=== PATIENT | male | born 1990 | race Caucasian/White ===

== ENCOUNTER 2017-03-20 15:29 | Emergency (ER) | payer OTHER ==
--- NOTE | 2017-03-20 16:39 | ED NURSING NOTES ---
Clinical Report - Nurses [facility] [address] [place] [address] 03/20/2017 15:31 Patient: JOSE CAMPBELL TRIAGE Triage time 15:43. Acuity: LEVEL 3. Chief Complaint: ABDOMINAL PAIN and (Lt lower abd and flank/back pain.). Alert. No acute distress. SEPSIS SCREEN: Sepsis Screen: negative. Negative (no infection suspected/documented). --15:51 Saumya Holland R.N. 15:43 03/20/17. BP: 119/58. HR: 53. RR: 20. O2 saturation: 99%. Temp: 97.8 F. Pain level now: 04/16. --15:51 Saumya Holland R.N. 15:43 03/20/17. BP: 119/58. HR: 53. RR: 20. O2 saturation: 99%. Temp: 97.8 F. Pain level now: 04/16. --15:51 Saumya Holland R.N. Weight: 56.6 kg stated. Height/Length: 67 inches Per Patient. BMI: 19.6. --15:45 Saumya Holland R.N. Medications PriLOSEC Oral 20 mg, daily. --15:50 Saumya Holland R.N. Robaxin Oral 500 mg, as needed. --15:50 Saumya Holland R.N. Medication/allergy information source: the patient. --15:51 Saumya Holland R.N. Allergies Codeine. --15:50 Saumya Holland R.N. History Arrived by private vehicle. Historian: patient. Accompanied by friend. Primary physician (chc). Symptoms still present (2 days). He has had abdominal pain. The pain is described as located in the left side of the abdomen and LLQ. No nausea, vomiting, diarrhea or constipation. Treatment [employer] [place]: None. SOCIAL HX: Never smoker. Occasional alcohol use. History of drug use: marijuana. Recently used drugs today. FALL RISK ASSESSMENT: Fall risk assessment completed. No fall risk identified. NUTRITIONAL RISK ASSESSMENT: The nutritional risk assessment revealed no deficiencies. FUNCTIONAL ASSESSMENT: Functional assessment: no impairments noted. LEARNING NEEDS ASSESSMENT: The learning needs assessment revealed no barriers. SKIN INTEGRITY ASSESSMENT: Skin integrity risk assessment completed. No skin integrity risk identified. --15:51 Saumya Holland R.N. PROBLEMS: Narcotic Dependence. Back Pain. Bibipolar . Anxiety. Gerd. --15:49 Saumya Holland R.N. ADDITIONAL SURGERIES: no known surgeries. Interventions ID band on patient. To room. --15:51 Saumya Holland R.N. PHYSICAL ASSESSMENT Ambulatory to room. Patient gowned. GENERAL / NEURO / PSYCH: Alert. Oriented X 4. Appears anxious. HEENT: Mucous membranes are pink. RESPIRATORY: Respirations not labored. CVS: Capillary refill less than 2 seconds. GI / : Abdominal tenderness in the left side of the abdomen and left lower quadrant. No abdominal distention. No nausea noted. No emesis noted. SKIN: Skin is warm and dry. --15:52 Saumya Holland R.N. NURSING PROGRESS NOTES Patient gowned. Head of bed elevated. Two patient identifiers checked. Call light placed in reach. Side rails up x 2. Bed placed in lowest position. Brakes of bed on. Patient ready for evaluation. --15:52 Saumya Holland R.N. 15:52 03/20/2017 Site #1 started via IV in the right forearm with an 20g angiocath, with aseptic technique and good blood return; one attempt. Blood drawn: rainbow set. Labeled in the presence of the patient and sent to the lab. Saline lock flushed with 10 mL saline (Started by WALLY Rogers). --15:52 Saumya Holland R.N. 16:29 03/20/2017 Toradol IVP 30 mg given over 1 minute(s) via site #1. Allergies verified and confirmed 5 rights. IV patency established. IV site checked: no pain, redness, or swelling. IV flushed thoroughly pre- and post-medication administration. IVP given by RN. --16:39 Saumya Holland R.N. DISPOSITION / DISCHARGE 16:47 03/20/17. Condition at departure: improved. No learning barriers present. Patient verbalized understanding. Written instructions provided in Italian. The patient was discharged home and accompanied by base cloth inspector. He left the Emergency Department ambulatory and via private vehicle. Pigs Feet Finisher driving. Medication list reviewed and validated. --16:47 Saumya Holland R.N. 16:46 03/20/17. BP: 114/69. HR: 77. RR: 16. O2 saturation: 99%. Temp: deferred. Pain level now: 11/14. 15:43 03/20/17. BP: 119/58. HR: 53. RR: 20. O2 saturation: 99%. Temp: 97.8 F. Pain level now: 04/16. --16:47 Saumya Holland R.N. Locked/Released at 03/20/2017 16:47 by Saumya Holland R.N.
--- NOTE | 2017-03-20 16:39 | ED ORDER SUMMARY ---
..... Patient: JOSE CAMPBELL OrderSheet [facility] VisitID: [id number] [address] [place] [address] 26y, M Registration Date/Time: 03/20/2017 ORDER SHEET Weight: 56.6 kg (stated) Allergies: Codeine GENERAL ORDERS: CBC w Diff Urgent (16:07 03/20/2017 HBivens A.R.N.P.) (Ack 16:09 OHolivianandez) (16:20 SRoberts R.N.) CMP Urgent (16:03/20/2017 HBivens A.R.N.P.) (Ack 16:09 Cliftonnandez) (16:20 SRoberts R.N.) UA-Culture if indicated Urgent (16:03/20/2017 HBivens A.R.N.P.) (Ack 16:09 Leana) (16:20 SRoberts R.N.) Urine Drug Screen Urgent (16:07 03/20/2017 HBivens A.R.N.P.) (Ack 16:09 Cliftonnandez) (16:20 SRoberts R.N.) Amylase Urgent (16:07 03/20/2017 HBivens A.R.N.P.) (Ack 16:09 Cliftonnandez) (16:20 SRoberts R.N.) Lipase Urgent (16:03/20/2017 HBivens A.R.N.P.) (Ack 16:09 Cliftonnandez) (16:20 SRoberts R.N.) MEDICATION ORDERS: IV FLUIDS: Toradol IV 30 mg (NOW) (16:07 03/20/2017 HBivens A.R.N.P.) (16:39 SRoberts R.N.) IV Saline Lock (16:03/20/2017 HBivens A.R.N.P.) (16:20 SRoberts R.N.) ORDER SHEET NOTES: [Electronically signed by Saumya Holland R.N. (16:47 03/20/2017)] [Electronically signed by Solange Durham.R.N.P. (17:56 03/20/2017)] [Electronically locked/signed by Saumya Holland R.N. (16:47 03/20/2017)]
--- NOTE | 2017-03-20 16:39 | ED CLINICAL REPORT ---
Clinical Report - Physicians/Mid Levels [facility] [address] [place] [address] 03/20/2017 15:31 Patient: JOSE CAMPBELL Time Seen: 15:45; initial patient contact, initial documentation, patient care assumed. Arrived- By private vehicle. Historian- patient. HISTORY OF PRESENT ILLNESS Chief Complaint: ABDOMINAL PAIN. This started about 2 days ago and is still present. It was abrupt in onset and has been constant. At its maximum, severity described as severe. When seen in the E.D., severity described as severe. Modifying factors- (relieved a little with 'cannabis'). Not worsened by anything. It is described as "pain" and dull. No radiation. It is described as located in the left abdomen and left lower quadrant and the left flank. No nausea, loss of appetite, vomiting or diarrhea. No additional abdominal pain. No recent travel. Similar symptoms previously: None. Recent medical care: Not recently seen/assessed. REVIEW OF SYSTEMS No constipation, black stools, hematemesis, difficulty with urination or pain with urination. No urinary frequency, fever, chest pain or difficulty breathing. All systems otherwise negative, except as recorded above. PAST HISTORY See nurses notes. PROBLEMS: Narcotic Dependence. Back Pain. Bibipolar . Anxiety. Gerd. --15:49 Saumya Holland R.N. ADDITIONAL SURGERIES: no known surgeries. SOCIAL HISTORY Never smoker. Occasional alcohol use. History of occasional drug use: marijuana. No recent travel. Is a local resident. FAMILY HISTORY Negative. ADDITIONAL NOTES The nursing notes have been reviewed with agreement regarding the chief complaint, HPI, ROS, PMH and patient medications and allergies. PHYSICAL EXAM Vital Signs: 03/20/2017 15:43 BP: 119/58. HR: 53. RR: 20. O2 saturation: 99%. Temp: 97.8 F. Pain level now: 8/10. Have been reviewed as abnormal and appear to be correct. Blood pressure normal. Bradycardic. Respiratory rate normal. Temperature normal. Oxygen saturation normal. Appearance: Alert. Oriented X3. No acute distress. Eyes: Pupils equal, round and reactive to light. Eyes normal inspection. Neck: Normal inspection. Neck supple. CVS: Normal heart rate and rhythm. Heart sounds normal. Pulses normal. Respiratory: No respiratory distress. Breath sounds normal. Chest nontender. Abdomen: Soft and nontender. Bowel sounds normal. No organomegaly. No mass. Back: Normal inspection. Skin: Skin warm and dry. Normal skin color. No rash. Normal skin turgor. Extremities: Extremities exhibit normal ROM. No lower extremity edema. Neuro: Oriented X 3. No motor deficit. No sensory deficit. LABS, X-RAYS, AND EKG Laboratory Tests: UA-Culture if indicated: (EBEN: 03/20/2017 15:35) ( [facility] 03/20/2017 16:31) IP Test Result Flag Units (Reference) URINE COLOR YELLOW URINE APPEARANCE CLEAR URINE GLUCOSE NEGATIVE (NEGATIVE) URINE BILIRUBIN NEGATIVE (NEGATIVE) URINE KETONE NEGATIVE (NEGATIVE) URINE SPECIFIC GRAVITY 1.015 (1.010-1.030) URINE PH 7.5 (5.0-8.0) URINE PROTEIN NEGATIVE (NEGATIVE) URINE UROBILINOGEN 0.2 EU/dL (0.2-1.0) URINE NITRITE NEGATIVE (NEGATIVE) URINE BLOOD NEGATIVE (NEGATIVE) URINE LEUK ESTERASE NEGATIVE (NEGATIVE) CBC w Diff: (EBEN: 03/20/2017 15:45) ( [facility] 03/20/2017 16:22) Final results Test Result Flag Units (Reference) WHITE BLOOD COUNT 9.8 K/uL (4.5-11.5) RED BLOOD COUNT 5.35 M/uL (4.50-5.90) HEMOGLOBIN 16.0 gm/dL (13.5-17.5) HEMATOCRIT 47.4 % (41.0-53.0) MEAN CELL VOLUME 89 fL (80-100) MEAN CORPUSCULAR HGB 30 pg (26-34) MEAN CORPUSCULAR HGB CONC 34 g/dL (31-37) RED CELL DISTRIBUTION WIDTH 12.3 % (11.6-14.8) PLATELET COUNT 273 K/uL (150-400) LYMPH % 18.4 L % (25-40) MONO % 2.4 L % (3-14) GRANULOCYTE % 79.2 % (53-90) CMP: (EBEN: 03/20/2017 15:45) ( MsgRcvd 03/20/2017 16:35) Final results Test Result Flag Units (Reference) GLUCOSE 106 mg/dL (70-110) BUN 14 mg/dL (7-18) CREATININE 0.9 mg/dL (0.6-1.3) Estimated GFR >60 mL/min Estimated GFR- >60 mL/min Note: Persistent reduction over 3 months in eGFR<60 mL/min/1.73 m2 defines CKD. Patients with eGFR values>=60 mL/min/1.73 m2 may also have CKD if evidence ofpersistent proteinuria. Additional information may be foundat www.kidney.org. SODIUM 141 mmol/L (136-145) POTASSIUM 3.8 mmol/L (3.5-5.1) CHLORIDE 104 mmol/L (98-107) CARBON DIOXIDE 28 mmol/L (21-32) CALCIUM 8.8 mg/dL (8.5-10.1) TOTAL PROTEIN 7.2 g/dL (6.4-8.2) ALBUMIN 4.5 g/dL (3.3-5.0) BILIRUBIN, TOTAL 0.7 mg/dL (0.0-1.0) ALKALINE PHOSPHATASE 51 U/L (46-116) AST (SGOT) 11 L U/L (15-37) ALT (SGPT) 17 U/L (12-78) LIPASE 171 U/L (73-393) AMYLASE 65 U/L (25-115) . PROGRESS AND PROCEDURES Patient counseled in person regarding the patient's stable condition, test results and diagnosis. 16:36. Differential Diagnosis: I considered gastritis, gastroenteritis, peptic ulcer disease, gastroesophageal reflux disease, diverticulitis, colon cancer, ulcerative colitis, Crohn's disease, splenic abscess, ureterolithiasis and viral syndrome as a possible cause of abdominal pain in this patient. This is a partial list of diagnoses considered. Above considerations are based on history and physical exam. Differential diagnosis was discussed with patient. Disposition: Discharged home in good and unchanged condition (16:37). Condition: good and stable. CLINICAL IMPRESSION Acute left upper quadrant and left lower quadrant abdominal pain. INSTRUCTIONS Warnings: GENERAL WARNINGS: Return or contact your physician immediately if your condition worsens or changes unexpectedly, if not improving as expected, or if other problems arise. SPECIFICALLY, return if you develop pain in the abdomen or pelvis, fever, the inability to keep fluids down, blood in vomitus, blood in diarrhea, fainting or lightheadedness. Follow-up: Follow up with your doctor in about three days even if well. Call for an appointment. Summary of care provided to patient. Understanding of the discharge instructions verbalized by patient. (Electronically signed by Solange Durham A.R.N.P. 03/20/2017 17:56)
--- NOTE | 2017-03-20 16:39 | ED NURSING NOTES ---
Clinical Report - Nurses [facility] [address] [place] [address] 03/20/2017 15:31 Patient: JOSE CAMPBELL TRIAGE Triage time 15:43. Acuity: LEVEL 3. Chief Complaint: ABDOMINAL PAIN and (Lt lower abd and flank/back pain.). Alert. No acute distress. SEPSIS SCREEN: Sepsis Screen: negative. Negative (no infection suspected/documented). --15:51 Saumya Holland R.N. 15:43 03/20/17. BP: 119/58. HR: 53. RR: 20. O2 saturation: 99%. Temp: 97.8 F. Pain level now: 04/16. --15:51 Saumya Holland R.N. 15:43 03/20/17. BP: 119/58. HR: 53. RR: 20. O2 saturation: 99%. Temp: 97.8 F. Pain level now: 04/16. --15:51 Saumya Holland R.N. Weight: 56.6 kg stated. Height/Length: 67 inches Per Patient. BMI: 19.6. --15:45 Saumya Holland R.N. Medications PriLOSEC Oral 20 mg, daily. --15:50 Saumya Holland R.N. Robaxin Oral 500 mg, as needed. --15:50 Saumya Holland R.N. Medication/allergy information source: the patient. --15:51 Saumya Holland R.N. Allergies Codeine. --15:50 Saumya Holland R.N. History Arrived by private vehicle. Historian: patient. Accompanied by friend. Primary physician (chc). Symptoms still present (2 days). He has had abdominal pain. The pain is described as located in the left side of the abdomen and LLQ. No nausea, vomiting, diarrhea or constipation. 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 SOCIAL HX: Never smoker. Occasional alcohol use. History of drug use: marijuana. Recently used drugs today. FALL RISK ASSESSMENT: Fall risk assessment completed. No fall risk identified. NUTRITIONAL RISK ASSESSMENT: The nutritional risk assessment revealed no deficiencies. FUNCTIONAL ASSESSMENT: Functional assessment: no impairments noted. LEARNING NEEDS ASSESSMENT: The learning needs assessment revealed no barriers. SKIN INTEGRITY ASSESSMENT: Skin integrity risk assessment completed. No skin integrity risk identified. --15:51 Saumya Holland R.N. PROBLEMS: Narcotic Dependence. Back Pain. Bibipolar . Anxiety. Gerd. --15:49 Saumya Holland R.N. ADDITIONAL SURGERIES: no known surgeries. Interventions ID band on patient. To room. --15:51 Saumya Holland R.N. PHYSICAL ASSESSMENT Ambulatory to room. Patient gowned. GENERAL / NEURO / PSYCH: Alert. Oriented X 4. Appears anxious. HEENT: Mucous membranes are pink. RESPIRATORY: Respirations not labored. CVS: Capillary refill less than 2 seconds. GI / : Abdominal tenderness in the left side of the abdomen and left lower quadrant. No abdominal distention. No nausea noted. No emesis noted. SKIN: Skin is warm and dry. --15:52 Saumya Holland R.N. NURSING PROGRESS NOTES Patient gowned. Head of bed elevated. Two patient identifiers checked. Call light placed in reach. Side rails up x 2. Bed placed in lowest position. Brakes of bed on. Patient ready for evaluation. --15:52 Saumya Holland R.N. 15:52 03/20/2017 Site #1 started via IV in the right forearm with an 20g angiocath, with aseptic technique and good blood return; one attempt. Blood drawn: rainbow set. Labeled in the presence of the patient and sent to the lab. Saline lock flushed with 10 mL saline (Started by WALLY Rogers). --15:52 Saumya Holland R.N. 16:29 03/20/2017 Toradol IVP 30 mg given over 1 minute(s) via site #1. Allergies verified and confirmed 5 rights. IV patency established. IV site checked: no pain, redness, or swelling. IV flushed thoroughly pre- and post-medication administration. IVP given by RN. --16:39 Saumya Holland R.N. DISPOSITION / DISCHARGE 16:47 03/20/17. Condition at departure: improved. No learning barriers present. Patient verbalized understanding. Written instructions provided in Afghan. The patient was discharged home and accompanied by rock picker. He left the Emergency Department ambulatory and via private vehicle. Road Packer Operator driving. Medication list reviewed and validated. --16:47 Saumya Holland R.N. 16:46 03/20/17. BP: 114/69. HR: 77. RR: 16. O2 saturation: 99%. Temp: deferred. Pain level now: 11/14. 15:43 03/20/17. BP: 119/58. HR: 53. RR: 20. O2 saturation: 99%. Temp: 97.8 F. Pain level now: 04/16. --16:47 Saumya Holland R.N. Locked/Released at 03/20/2017 16:47 by Saumya Holland R.N.
--- NOTE | 2017-03-20 16:39 | ED ORDER SUMMARY ---
..... Patient: JOSE CAMPBELL OrderSheet [facility] VisitID: [id number] [address] [place] [address] 26y, M Registration Date/Time: 03/20/2017 ORDER SHEET Weight: 56.6 kg (stated) Allergies: Codeine GENERAL ORDERS: CBC w Diff Urgent (16:07 03/20/2017 HBivens A.R.N.P.) (Ack 16:09 OHolivianandez) (16:20 SRoberts R.N.) CMP Urgent (16:03/20/2017 HBivens A.R.N.P.) (Ack 16:09 Cliftonnandez) (16:20 SRoberts R.N.) UA-Culture if indicated Urgent (16:03/20/2017 HBivens A.R.N.P.) (Ack 16:09 Leana) (16:20 SRoberts R.N.) Urine Drug Screen Urgent (16:07 03/20/2017 HBivens A.R.N.P.) (Ack 16:09 Cliftonnandez) (16:20 SRoberts R.N.) Amylase Urgent (16:07 03/20/2017 HBivens A.R.N.P.) (Ack 16:09 Cliftonnandez) (16:20 SRoberts R.N.) Lipase Urgent (16:03/20/2017 HBivens A.R.N.P.) (Ack 16:09 Cliftonnandez) (16:20 SRoberts R.N.) MEDICATION ORDERS: IV FLUIDS: Toradol IV 30 mg (NOW) (16:07 03/20/2017 HBivens A.R.N.P.) (16:39 SRoberts R.N.) IV Saline Lock (16:03/20/2017 HBivens A.R.N.P.) (16:20 SRoberts R.N.) ORDER SHEET NOTES: [Electronically signed by Saumya Holalnd R.N. (16:47 03/20/2017)] [Electronically signed by Solange Durham.R.N.P. (17:56 03/20/2017)] [Electronically locked/signed by Saumya Holland R.N. (16:47 03/20/2017)]
--- NOTE | 2017-03-20 17:57 | ED MED RECONCILIATION SUMMARY ---
Patient: JOSE CAMPBELL Medication Reconciliation Report [facility] VisitID: [id number] [address] [place] [place] [address] 26y, M Registration Date/Time: 03/20/2017 Weight: 56.6 kg Height/Length: 67 in. BMI: 19.6 ALLERGIES: Codeine The patient's Home Medications are listed below: THE FOLLOWING MEDICATIONS NEED TO BE RECONCILED: PriLOSEC Oral 20 mg, daily Robaxin Oral 500 mg The source(s) of the original Home Medication information: patient The following Medications were given to the patient in the Emergency Department: Toradol [IVP] IVP 30 mg, administered: 03/20/2017 4:29:00 PM The following Medications were prescribed to the patient: None.
--- NOTE | 2017-03-20 17:57 | ED MAR SUMMARY ---
..... Medication Administration Record [facility] [address] [place] [address] Patient: OJSE CAMPBELL Visit ID: [id number] 26y, M Weight: 56.6 kg Height/Length: 67 in BMI: 19.6 ALLERGIES: Codeine Given 16:29 03/20/2017 Saumya Holland R.N. Medication Administered: TORADOL [IVP], Dose: 30 mg IVP over 1 minute(s), Site: #1 right forearm. Medication Ordered: Toradol IV 30 mg (NOW).
--- NOTE | 2017-03-20 17:57 | ED MED RECONCILIATION SUMMARY ---
Patient: JOSE CAMPBELL Medication Reconciliation Report [facility] VisitID: [id number] [address] [place] [address] 26y, M Registration Date/Time: 03/20/2017 Weight: 56.6 kg Height/Length: 67 in. BMI: 19.6 ALLERGIES: Codeine The patient's Home Medications are listed below: THE FOLLOWING MEDICATIONS NEED TO BE RECONCILED: PriLOSEC Oral 20 mg, daily Robaxin Oral 500 mg The source(s) of the original Home Medication information: patient The following Medications were given to the patient in the Emergency Department: Toradol [IVP] IVP 30 mg, administered: 03/20/2017 4:29:00 PM The following Medications were prescribed to the patient: None.
--- NOTE | 2017-03-20 17:57 | ED MAR SUMMARY ---
..... Medication Administration Record [facility] [address] [place] [address] Patient: JOSE CAMPBELL Visit ID: [id number] 26y, M Weight: 56.6 kg Height/Length: 67 in BMI: 19.6 ALLERGIES: Codeine Given 16:29 03/20/2017 Saumya Holland R.N. Medication Administered: TORADOL [IVP], Dose: 30 mg IVP over 1 minute(s), Site: #1 right forearm. Medication Ordered: Toradol IV 30 mg (NOW).
--- NOTE | 2017-03-20 17:57 | ED DISCHARGE INSTRUCTIONS ---
Patient: JOSE CAMPBELL General Instructions [facility] VisitID: [id number] [place] [address] 26y, M Registration Date/Time: 03/20/2017 Acute left upper quadrant and left lower quadrant abdominal pain. INSTRUCTIONS Warnings: GENERAL WARNINGS: Return or contact your physician immediately if your condition worsens or changes unexpectedly, if not improving as expected, or if other problems arise. SPECIFICALLY, return if you develop pain in the abdomen or pelvis, fever, the inability to keep fluids down, blood in vomitus, blood in diarrhea, fainting or lightheadedness. Follow-up: Follow up with your doctor in about three days even if well. Call for an appointment. Summary of care provided to patient. Understanding of the discharge instructions verbalized by patient. ADDITIONAL INFORMATION Abdominal Pain, Unknown Cause (Female) The exact cause of your abdominal (stomach) pain is not certain. This does not mean that this is something to worry about, or the right tests were not done. Everyone likes to know the exact cause of the problem, but sometimes with abdominal pain, there is no clear-cut cause, and this could be a good thing. The good news is that your symptoms can be treated, and you will feel better. Your condition does not seem serious now; however, sometimes the signs of a serious problem may take more time to appear. For this reason,it is important for you to watch for any new symptoms, problems,or worsening of your condition. Over the next few days, the abdominal pain may come and go, or be continuous. Other common symptoms can include nausea and vomiting. Sometimes it can be difficult to tell if you feel nauseous, you may just feel bad and not associate that feeling with nausea. Constipation, diarrhea, and a fever may go along with the pain. The pain may continue even if treated correctly over the following days. Depending on how things go, sometimes the cause can become clear and may require further or different treatment. Additional evaluations, medications, or tests may be needed. Home care Your health care provider may prescribe medications for pain, symptoms, or an infection. Follow the health care provider's instructions for taking these medications. General care Rest until your next exam. No strenuous activities. Try to find positions that ease discomfort. A small pillow placed on the abdomen may help relieve pain. Something warm on your abdomen (such as a heating pad) may help, but be careful not to burn yourself. Diet Do not force yourself to eat, especially if having cramps, vomiting, or diarrhea. Water is important so you do not get dehydrated. Soup may also be good. Sports drinks may also help, especially if they are not too acidic. Make sure you don't drink sugary drinks as this can make things worse. Take liquids in small amounts. Do not guzzle them. Caffeine sometimes makes the pain and cramping worse. Avoid dairy products if you have vomiting or diarrhea. Don't eat large amounts at a time. Wait a few minutes between bites. Eat a diet low in fiber (called a low-residue diet). Foods allowed include refined breads, white rice, fruit and vegetable juices without pulp, tender meats. These foods will pass more easily through the intestine. Avoid whole-grain foods, whole fruits and vegetables, meats, seeds and nuts, fried or fatty foods, dairy, alcohol and spicy foods until your symptoms go away. Follow-up care Follow up with your health care provider as instructed, or if your pain does not begin to improve in the next 24 hours. When to seek medical care Seek prompt medical care if any of the following occur: Pain gets worse or moves to the right lower abdomen New or worsening vomiting or diarrhea Swelling of the abdomen Unable to pass stool for more than three days Fever of 100.4F (38C) or higher, or as directed by your healthcare provider. Blood in vomit or bowel movements (dark red or black color) Jaundice (yellow color of eyes and skin) Weakness, dizziness Chest, arm, back, neck or jaw pain Unexpected vaginal bleeding or missed period Call 911 Call emergency services if any of the following occur: Trouble breathing Confusion Fainting or loss of consciousness Rapid heart rate Seizure You have been given the following additional information: Abdominal Pain, Unknown Cause, (Female) (Electronically signed by Solange Durham A.R.N.P. 03/20/2017 17:56)
== END 2017-03-20 16:45 | disposition home or self-care (01) ==
LOC: ED SRH 15:29
DX: R10.32 Left lower quadrant pain (principal); R10.12 Left upper quadrant pain; K21.9 Gastro-esophageal reflux disease without esophagitis; F31.9 Bipolar disorder, unspecified; Z79.899 Other long term (current) drug therapy; Z88.5 Allergy status to narcotic agent
CPT/HCPCS: 90004; 90100; 92235; 92530; 92760; 92761; 92762; 92763; 92764; 92765; 92766; 92767; 95059